=== PATIENT | female | born 1995 | race Caucasian/White ===

== ENCOUNTER 2017-01-15 17:58 | Emergency (ER) | payer OTHER ==
--- NOTE | 2017-01-15 18:13 | EDPHY ---
H & P Stated Complaint: flu like symptoms fever/ cough/n/v x 3 days Time Seen by Provider: 01/15/17 18:12 - Personal History LMP (Females 10-55): 15-21 Days Ago Current Tetanus/Diphtheria Vaccine: Yes - Medical/Surgical History Hx Asthma: No Hx Chronic Respiratory Disease: No Hx Diabetes: No Hx Cardiac Disease: No Hx Renal Disease: No Hx Cirrhosis: No Hx Alcoholism: No Hx HIV/AIDS: No Hx Splenectomy or Spleen Trauma: No Other PMH: denies - Social History Smoking Status: Never smoked Constitutional: Initial Vital Signs Temperature (C) 37.1 C 01/15/17 18:07 Heart Rate 117 H 01/15/17 18:07 Respiratory Rate 22 H 01/15/17 18:07 Blood Pressure 124/101 H 01/15/17 18:07 O2 Sat (%) 92 01/15/17 18:07 O2 Delivery Mode Room Air Allergies/Adverse Reactions: No Known Allergies Allergy (Unverified 01/15/17 18:06) Home Medications: Medication Instructions Recorded Enskyce 28 Tablet 01/15/17 Sertraline HCl 01/15/17 Medical Decision Making ED Course/Re-evaluation: CHIEF COMPLAINT: "I'm just beyond sick" HISTORY OF PRESENT ILLNESS: The patient is a 21 y/o female arriving with her friend complaining of a productive cough for 3 days and vomiting for 2 days. She initially developed a productive cough and then a subsequent sore throat and sneezing. Two days ago she developed nausea and vomiting and has been unable to eat since onset. She can only keep down small sips of water. She now feels very weak. She has not taken anything for her symptoms. She did not receive a flu vaccination this year. She is normally healthy. REVIEW OF SYSTEMS: A 10 point review of systems was performed and is negative with the exception of the elements mentioned in the history of present illness. PHYSICAL EXAM: HR, BP, O2 Sat, RR. Temp noted General Appearance: Alert, well hydrated, appropriate, and non-toxic appearing. Head: Atraumatic without scalp tenderness or obvious injury Eyes: Pupils equal, round, reactive to light and accommodation, EOMI, no trauma , no injection. Ears: Clear bilaterally, no perforation, normal landmarks Nose: Atraumatic, no rhinorrhea, clear. Throat: There is no erythema or exudates, no lesions, normal tonsils, mildly injected mucosa, mucus membranes moist. Neck: Supple, nontender, no lymphadenopathy. Respiratory: No retractions, no distress, no wheezes, and no accessory muscle use. Lungs are clear to auscultation bilaterally. Cardiovascular: Regular rate and rhythm, no murmurs, rubs, or gallops. Good capillary refill all extremities. Gastrointestinal: Abdomen is soft, nontender, non-distended, no masses, no rebound, no guarding, no peritoneal signs. Musculoskeletal: Normal active ROM of all extremities, atraumatic. Neurological: Alert, appropriate, and interactive. The patient has non-focal cranial nerves, motor, sensory, and cerebellar exam. Skin: No rashes, good turgor, no nodules on palpation. Past medical history: Depression - Zoloft Past surgical history: Denies Family history: noncontributory Social history: Friend at bedside. [employer] student. DIFFERENTIAL DIAGNOSIS: The differential diagnosis for the patient's nausea and vomiting included but was not limited to gastroenteritis, gastritis, appendicitis, and medication side effect. MEDICAL DECISION MAKING: This is a normally healthy 21 y/o female who presents with a 3-day history of productive cough and a 2-day history of vomiting leaving her unable to eat. She has a benign abdomen on exam and is afebrile here. Plan for IV, labs, and symptom management. 4mg IV Zofran, 30mg IV Toradol, and 2L IV NS administered. 1999: Reassessed patient. She feels a bit better, but has not urinated yet. Plan for a 3rd liter of fluid and another 4mg IV Zofran. She will try a few sips of water PO as well. 2144: Reassessed patient. She feels completely better and is tolerating PO fluids without issue. She feels comfortable being discharged home and following up with her PCP as needed. She will receive a script for Zofran. Return precautions discussed. - Data Points Laboratory Results: Laboratory Results 01/15/17 18:43 01/15/17 18:43 01/15/17 01/15/17 01/15/17 18:43 18:43 18:43 WBC 9.00 10^3/uL 10^3/uL (3.80-9.50) RBC 4.26 10^6/uL 10^6/uL (4.18-5.33) Hgb 13.7 g/dL g/dL (12.6-16.3) Hct 37.6 % L % (38.0-47.0) MCV 88.3 fL fL (81.5-99.8) MCH 32.2 pg pg (27.9-34.1) MCHC 36.4 g/dL g/dL (32.4-36.7) RDW 12.3 % % (11.5-15.2) Plt Count 211 10^3/uL 10^3/uL (150-400) MPV 9.0 fL fL (8.7-11.7) Neut % (Auto) 80.1 % H % (39.3-74.2) Lymph % (Auto) 13.4 % L % (15.0-45.0) [place] % (Auto) 5.2 % % (4.5-13.0) Eos % (Auto) 0.6 % % (0.6-7.6) Baso % (Auto) 0.4 % % (0.3-1.7) Nucleat RBC Rel Count 0.0 % % (0.0-0.2) Absolute Neuts (auto) 7.20 10^3/uL H 10^3/uL (1.70-6.50) Absolute Lymphs (auto) 1.21 10^3/uL 10^3/uL (1.00-3.00) Absolute Monos (auto) 0.47 10^3/uL 10^3/uL (0.30-0.80) Absolute Eos (auto) 0.05 10^3/uL 10^3/uL (0.03-0.40) Absolute Basos (auto) 0.04 10^3/uL 10^3/uL (0.02-0.10) Absolute Nucleated RBC 0.00 10^3/uL 10^3/uL (0-0.01) Immature Gran % 0.3 % % (0.0-1.1) Immature Gran # 0.03 10^3/uL 10^3/uL (0.00-0.10) Sodium 137 mEq/L mEq/L (134-144) Potassium 3.6 mEq/L mEq/L (3.5-5.2) Chloride 100 mEq/L mEq/L (97-110) Carbon Dioxide 23 mEq/l mEq/l (22-31) Anion Gap 14 mEq/L mEq/L (8-16) BUN 8 mg/dL mg/dL (7-23) Creatinine 0.7 mg/dL mg/dL (0.6-1.0) Estimated GFR > 60 Glucose 97 mg/dL mg/dL (70-100) Calcium 9.6 mg/dL mg/dL (8.5-10.4) Beta HCG, Qual NEGATIVE Medications Given: Discontinued Medications Sodium Chloride (Ns) 1,000 mls @ 0 mls/hr IV EDNOW ONE; Wide Open PRN Reason: Protocol Stop: 01/15/17 18:36 Last Admin: 01/15/17 18:45 Dose: 1,000 mls Sodium Chloride (Ns) 1,000 mls @ 0 mls/hr IV EDNOW ONE; Wide Open PRN Reason: Protocol Stop: 01/15/17 18:36 Last Admin: 01/15/17 18:58 Dose: 1,000 mls Sodium Chloride (Ns) 1,000 mls @ 0 mls/hr IV EDNOW ONE; Wide Open PRN Reason: Protocol Stop: 01/15/17 20:07 Last Admin: 01/15/17 20:33 Dose: 1,000 mls Ketorolac Tromethamine (Toradol) 30 mg IVP EDNOW ONE Stop: 01/15/17 18:36 Last Admin: 01/15/17 18:58 Dose: 30 mg Ondansetron HCl (Zofran) 4 mg IVP EDNOW ONE Stop: 01/15/17 18:36 Last Admin: 01/15/17 18:58 Dose: 4 mg Promethazine HCl (Phenergan) 12.5 mg IVP EDNOW ONE Stop: 01/15/17 20:07 Last Admin: 01/15/17 20:34 Dose: 12.5 mg Departure - Departure Disposition: Home, Routine, Self-Care Clinical Impression: Gastroenteritis Condition: Good Instructions: Ondansetron (By mouth), Gastroenteritis (ED) Additional Instructions: 1. Take Zofran as prescribed as needed for nausea and vomiting. 2. Increase fluid intake. 3. Follow up with your primary care provider for unimproved symptoms over the next few days. 4. Return to the ED if you are unable to keep fluids down or experience other worsening of condition. Referrals: CHEMA,UNKNOWN [Other] - As per Instructions [facility] [Clinic] - As per Instructions Report Scribed for: Papito Olson Report Scribed by: Leydi Sherman Date of Report: 01/15/17 Time of Report: 18:37
[2017-01-15] MEDS ORDERED: ONDANSETRON 4 MG/2 ML VIAL IVP ONE (18:35)
[2017-01-15] MEDS ORDERED: KETOROLAC 30 MG/1 ML SDV IVP ONE (18:35)
[2017-01-15] MEDS ORDERED: NS 1,000 ML IV ONE ×3 (18:35→20:06)
[2017-01-15 18:56] LABS: % IMMATURE GRANULYOCYTES 0.3 % (0.0-1.1); ABSOLUTE IMMATURE GRANULOCYTES 0.03 10^3/uL (0.00-0.10); ADD DIFF? NO; ADD MORPH? NO; ADD SCAN? NO; ATYPICAL LYMPHOCYTE FLAG 30 (0-99); FRAGMENT RBC FLAG 0 (0-99); HEMATOCRIT 37.6 % (38.0-47.0); HEMOGLOBIN 13.7 g/dL (12.6-16.3); LEFT SHIFT FLG 0 (0-99); LIPEMIA HEMOLYSIS FLAG 90 (0-99); MEAN CELL HEMOGLOBIN 32.2 pg (27.9-34.1); MEAN CELL HEMOGLOBIN CONCENTR. 36.4 g/dL (32.4-36.7); MEAN CELL VOLUME 88.3 fL (81.5-99.8); PLATELET CLUMPS FLAG 0 (0-99); PLATELET COUNT 211 10^3/uL (150-400); RED BLOOD CELL COUNT 4.26 10^6/uL (4.18-5.33); RED CELL DISTRIBUTION WIDTH 12.3 % (11.5-15.2)
[2017-01-15 19:09] LABS: ANION GAP 14 mEq/L (8-16); CALCIUM 9.6 mg/dL (8.5-10.4); CARBON DIOXIDE 23 mEq/l (22-31); CHLORIDE 100 mEq/L (97-110); CREATININE 0.7 mg/dL (0.6-1.0); GLOMERULAR FILTRATION RATE > 60; GLUCOSE 97 mg/dL (70-100); POTASSIUM 3.6 mEq/L (3.5-5.2); SODIUM 137 mEq/L (134-144)
[2017-01-15] MEDS ORDERED: PROMETHAZINE HCL 25 MG/ML INJ IVP ONE (20:06)
[2017-01-15 20:25] VITALS: TEMP 98.2
[2017-01-15] MEDS ORDERED: ONDANSETRON 4MG PREPACK#2 BTL TAKEHOME ONE (21:50)
[2017-01-15 22:00] VITALS: BP 133/82; PULSE 76; RESP 18; O2SAT 96
== END 2017-01-15 22:00 | disposition home or self-care (01) ==
DX: K52.9 Noninfective gastroenteritis and colitis, unspecified (principal); E86.9 Volume depletion, unspecified
CPT/HCPCS: 96374; J1885; J2405; J2550

== ENCOUNTER 2017-01-23 17:25 | Emergency (ER) | payer OTHER ==
[2017-01-23 17:36] VITALS: RESP 16
--- NOTE | 2017-01-23 17:43 | CPEKG ---
Heart Rate: 129 RR Interval: 465 P-R Interval: 156 QRSD Interval: 106 QT Interval: 304 QTC Interval: 446 P [place]: 71 QRS [place]: 81 T Wave [place]: -31 EKG Severity - ABNORMAL ECG - EKG Impression: SINUS TACHYCARDIA EKG Impression: INCOMPLETE RIGHT BUNDLE BRANCH BLOCK Electronically Signed By: Luis Enrique Valentin 23-Jan-2017 18:58:28
[2017-01-23] MEDS ORDERED: LORazepam 2 MG/ML INJ IVP ONE ×2 (17:48→19:56)
[2017-01-23] MEDS ORDERED: NS 1,000 ML IV ONE ×2 (17:48→18:50)
--- NOTE | 2017-01-23 17:52 | EDPHY ---
General - History Smoking Status: Never smoked Narrative: CHIEF COMPLAINT: Elevated heart rate, marijuana use HISTORY OF PRESENT ILLNESS: Patient presents by EMS after reports the feeling lightheaded. She is not entirely sure if she lost consciousness. She says that she took 1 large hit of marijuana that she prepared herself. This was around 3:00 p.m.. She said after that she began to feel her heart race. She felt lightheaded and feel as though she was going to pass out. She has not know she did lose consciousness. She had no chest pain of any kind. She has no chest pain now. She feels anxious from this. She can feel her heart beating but has no pain of any kind. No shortness of breath. No recent travel or surgery. No history of venous thrombolic event. She has no nausea. No cough. Was diagnosed with the flu last week and feels as though she is still getting over this. No other associated complaints or modifying factors. REVIEW OF SYSTEMS: Ten systems reviewed and are negative unless otherwise noted in the HPI PCP: None locally SPECIALISTS: None PAST MEDICAL HISTORY: Anxiety. PAST SURGICAL HISTORY: None SOCIAL HISTORY: Occasional smoker. Occasional alcohol. Marijuana user. Originally from [place]. Is a sophomore at [employer] FAMILY HISTORY: Noncontributory EXAMINATION General Appearance: Alert, no distress, fidgeting Head: normocephalic, atraumatic Eyes: Pupils equal and round, no conjunctival pallor or injection ENT, Mouth: Mucous membranes moist Neck: Normal inspection, supple, non-tender Respiratory: Lungs are clear to auscultation. No wheeze, rhonchi or crackles. No tachypnea. No distress Cardiovascular: Tachycardic rate. Regular rhythm. No murmur. Pulses intact distally in symmetrically Gastrointestinal: Abdomen is soft and nontender Back: non-tender, no bony abnormalities Neurological: A&O, nonfocal, strength is symmetric. Skin: Warm and dry, no rash. No diaphoresis. Extremities: Nontender, no pedal edema Psychiatric: Anxious. Mood and affect normal DIFFERENTIAL DIAGNOSES: Including but not limited to substance abuse, tachycardia, syncope, PE, dehydration MDM: 5:50 p.m. Sinus tachycardia and anxiety after marijuana use. Patient is a regular user that this feels different to her. She has no chest pain at this time. She is tachycardic but hemodynamically stable. She is awake and alert. No acute distress. She is on monitoring analyst. EKG reveals sinus tachycardia but no ischemia. I have ordered laboratory studies and IV fluid bolus. I have ordered Ativan IV 1 mg. she is resting comfortably at this time. Case discussed with Dr. Valentin. 6:30 p.m. D-dimer negative. Troponin negative. Laboratory studies are otherwise negative as well. Patient re-evaluated. Her heart rate is trending down with the IV fluid. She has declined the Ativan. She remains comfortable in no acute distress. 7:45 p.m. Patient re-evaluated. She continued anxious. Heart rate has come down with but she still feels nervous. She initially declined the Ativan because she was also nervous to take that. She now consents to taking Ativan IV. I suspect this will further lower heart rate and improve her symptoms. 8:45 p.m. Patient re-evaluated. She is feeling significantly better after the IV Ativan. Heart rate continues to trend down. She has received 2 L IV fluid. She would like to be discharged home at this time. I do feel she is stable so. She has no chest pain. She is feeling less anxious. We discuss refrain from use of marijuana. We discussed follow up campus at [facility] at for further care for anxiety. We discussed ED precautions for any chest pain of any kind, shortness of breath. She is comfortable this plan. She is discharged in stable condition. EKG interpretation: Dr. Valentin Sinus tachycardia with an incomplete right bundle branch block. No ischemia (Ernesto Rogers) Medical Decision Making: PHYSICIAN DOCUMENTATION: The patient was evaluated and managed by the Physician Manager Drug. My co- signature indicates that I have reviewed this chart and I agree with the findings and plan of care as documented. I am the secondary supervising physician. (Luis Enrique Valentin) - Diagnostics EKG Interpretation: EKG: Complete interpretation has been separately recorded in the [employer] archive. Summary impression: Sinus tachycardia, rate 129, right bundle branch block (Luis Enrique Valentin) Differential Diagnosis: I (Luis Enrique Valentin) - Objective Vital Signs: Initial Vital Signs Temperature (C) 98.6 F 01/23/17 17:35 Heart Rate 138 H 01/23/17 17:35 Respiratory Rate 16 01/23/17 17:35 Blood Pressure 138/76 H 01/23/17 17:35 O2 Sat (%) 99 01/23/17 17:35 O2 Delivery Mode Room Air Allergies/Adverse Reactions: No Known Allergies Allergy (Unverified 01/15/17 18:06) Home Medications: Medication Instructions Recorded Enskyce 28 Tablet 01/15/17 Sertraline HCl 01/15/17 hydrOXYzine HCL [Hydroxyzine HCl] 1 - 2 tab PO Q6-8PRN PRN #15 tablet 01/23/17 Laboratory Results: Laboratory Results 01/23/17 17:00 01/23/17 17:00 01/23/17 01/23/17 01/23/17 17:00 17:00 17:00 WBC RBC Hgb Hct MCV MCH MCHC RDW Plt Count MPV Neut % (Auto) Lymph % (Auto) [place] % (Auto) Eos % (Auto) Baso % (Auto) Nucleat RBC Rel Count Absolute Neuts (auto) Absolute Lymphs (auto) Absolute Monos (auto) Absolute Eos (auto) Absolute Basos (auto) Absolute Nucleated RBC Immature Gran % Immature Gran # D-Dimer < 0.27 ug/mLFEU ug/mLFEU (0.00-0.50) Sodium 139 mEq/L mEq/L (134-144) Potassium 3.2 mEq/L L mEq/L (3.5-5.2) Chloride 98 mEq/L mEq/L (97-110) Carbon Dioxide 16 mEq/l L mEq/l (22-31) Anion Gap 25 mEq/L H mEq/L (8-16) BUN 11 mg/dL mg/dL (7-23) Creatinine 0.8 mg/dL mg/dL (0.6-1.0) Estimated GFR > 60 Glucose 132 mg/dL H mg/dL (70-100) Calcium 10.0 mg/dL mg/dL (8.5-10.4) Troponin I < 0.012 ng/mL ng/mL (0.000-0.034) Beta HCG, Qual NEGATIVE 01/23/17 17:00 WBC 11.23 10^3/uL H 10^3/uL (3.80-9.50) RBC 4.53 10^6/uL 10^6/uL (4.18-5.33) Hgb 14.4 g/dL g/dL (12.6-16.3) Hct 41.4 % % (38.0-47.0) MCV 91.4 fL fL (81.5-99.8) MCH 31.8 pg pg (27.9-34.1) MCHC 34.8 g/dL g/dL (32.4-36.7) RDW 12.5 % % (11.5-15.2) Plt Count 371 10^3/uL 10^3/uL (150-400) MPV 9.0 fL fL (8.7-11.7) Neut % (Auto) 50.6 % % (39.3-74.2) Lymph % (Auto) 41.4 % % (15.0-45.0) [place] % (Auto) 5.9 % % (4.5-13.0) Eos % (Auto) 1.0 % % (0.6-7.6) Baso % (Auto) 0.6 % % (0.3-1.7) Nucleat RBC Rel Count 0.0 % % (0.0-0.2) Absolute Neuts (auto) 5.68 10^3/uL 10^3/uL (1.70-6.50) Absolute Lymphs (auto) 4.65 10^3/uL H 10^3/uL (1.00-3.00) Absolute Monos (auto) 0.66 10^3/uL 10^3/uL (0.30-0.80) Absolute Eos (auto) 0.11 10^3/uL 10^3/uL (0.03-0.40) Absolute Basos (auto) 0.07 10^3/uL 10^3/uL (0.02-0.10) Absolute Nucleated RBC 0.00 10^3/uL 10^3/uL (0-0.01) Immature Gran % 0.5 % % (0.0-1.1) Immature Gran # 0.06 10^3/uL 10^3/uL (0.00-0.10) D-Dimer Sodium Potassium Chloride Carbon Dioxide Anion Gap BUN Creatinine Estimated GFR Glucose Calcium Troponin I Beta HCG, Qual Medications Given: Discontinued Medications Sodium Chloride (Ns) 1,000 mls @ 0 mls/hr IV EDNOW ONE; Wide Open PRN Reason: Protocol Stop: 01/23/17 17:49 Last Admin: 01/23/17 18:22 Dose: 1,000 mls Sodium Chloride (Ns) 1,000 mls @ 0 mls/hr IV EDNOW ONE; Wide Open PRN Reason: Protocol Stop: 01/23/17 18:51 Last Admin: 01/23/17 19:00 Dose: 1,000 mls Lorazepam (Ativan Injection) 1 mg IVP EDNOW ONE Stop: 01/23/17 17:49 Last Admin: 01/23/17 18:22 Dose: Not Given Lorazepam (Ativan Injection) 1 mg IVP EDNOW ONE Stop: 01/23/17 19:57 Last Admin: 01/23/17 19:57 Dose: 1 mg Departure - Departure Disposition: Home, Routine, Self-Care Clinical Impression: Anxiety reaction, Tachycardia Condition: Good Instructions: Anxiety (ED), Anxiolysis in Adults (ED) Additional Instructions: 1. Medication as prescribed as needed 2. Increase fluid intake of the next 2-3 days 3. Follow up on campus at [facility] at 4. ED precautions as discussed Referrals: Carmel Gonzales MD [Medical Doctor] - As per Instructions [facility],. [Clinic] - As per Instructions Prescriptions: hydrOXYzine HCL [Hydroxyzine HCl] 1 - 2 tab PO Q6-8PRN PRN #15 tablet PRN Reason: Anxiety
[2017-01-23 17:58] LABS: % IMMATURE GRANULYOCYTES 0.5 % (0.0-1.1); ABSOLUTE IMMATURE GRANULOCYTES 0.06 10^3/uL (0.00-0.10); ADD DIFF? NO; ADD MORPH? NO; ADD SCAN? NO; ATYPICAL LYMPHOCYTE FLAG 40 (0-99); FRAGMENT RBC FLAG 0 (0-99); HEMATOCRIT 41.4 % (38.0-47.0); HEMOGLOBIN 14.4 g/dL (12.6-16.3); LEFT SHIFT FLG 0 (0-99); LIPEMIA HEMOLYSIS FLAG 90 (0-99); MEAN CELL HEMOGLOBIN 31.8 pg (27.9-34.1); MEAN CELL HEMOGLOBIN CONCENTR. 34.8 g/dL (32.4-36.7); MEAN CELL VOLUME 91.4 fL (81.5-99.8); PLATELET CLUMPS FLAG 10 (0-99); PLATELET COUNT 371 10^3/uL (150-400); RED BLOOD CELL COUNT 4.53 10^6/uL (4.18-5.33); RED CELL DISTRIBUTION WIDTH 12.5 % (11.5-15.2)
[2017-01-23 18:10] LABS: ANION GAP 25 mEq/L (8-16); CARBON DIOXIDE 16 mEq/l (22-31); CHLORIDE 98 mEq/L (97-110); CREATININE 0.8 mg/dL (0.6-1.0); GLOMERULAR FILTRATION RATE > 60; GLUCOSE 132 mg/dL (70-100); POTASSIUM 3.2 mEq/L (3.5-5.2); SODIUM 139 mEq/L (134-144)
[2017-01-23 18:22] LABS: TROPONIN I < 0.012 ng/mL (0.000-0.034)
[2017-01-23] MEDS ORDERED: LORazepam 2 MG/ML INJ ONE (19:55)
[2017-01-23 20:18] VITALS: PULSE 104; O2SAT 96
[2017-01-23 21:15] VITALS: BP 145/91; TEMP 98.6
== END 2017-01-23 21:12 | disposition home or self-care (01) ==
LOC: EDUNIT#
DX: R00.0 Tachycardia, unspecified (principal); F41.1 Generalized anxiety disorder; E86.9 Volume depletion, unspecified
CPT/HCPCS: 96374; J2060